=== PATIENT | female | born 1990 | race African-American/Black ===

== ENCOUNTER 2016-06-26 14:59 | Inpatient (IN) | payer OTHER ==
[~2016-06-26] VITALS: Ht 162.6 cm; Wt 106.0 kg
[~2016-06-26 14:59] MED LIST: PREN1TAB49 PO
[2016-06-26 15:23] LABS: URINE BLOOD (Dip) POC Negative (NEGATIVE)
[2016-06-26 15:27] VITALS: BP 134/61; PULSE 92; RESP 18; Ht 162.6 cm; Wt 106.0 kg
[2016-06-26 15:41] LABS: ADD UMIC YES; URINE BILIRUBIN (Dip) NEGATIVE (NEGATIVE); URINE BLOOD (Dip) NEGATIVE (NEGATIVE); URINE COLOR LT. YELLOW (YELLOW); URINE GLUCOSE (Dip) NEGATIVE (NEGATIVE); URINE KETONES (Dip) 3+ (NEGATIVE); URINE LEUKOCYTE ESTERASE (Dip) TRACE (NEGATIVE); URINE NITRITE (Dip) NEGATIVE (NEGATIVE); URINE TOTAL PROTEIN (Dip) TRACE (NEGATIVE); URINE UROBILINOGEN (Dip) 0.2 E.U./dL (0.1-1.0)
[2016-06-26 16:05] LABS: SQUAMOUS EPITHELIAL CELL,UR MODERATE; URINE RBCS NONE SEEN /HPF (0)
[2016-06-26 16:09] LABS: ADD SCAN DIFF NO
[2016-06-26 16:10] LABS: BASOPHILS % 0.1 % (0.0-2.0); EOSINOPHILS # 0.1 10^3/ul (0.0-0.5); EOSINOPHILS % 0.8 % (0.0-7.0); HEMATOCRIT 38.3 % (37.0-47.0); HEMOGLOBIN 13.4 g/dl (12.0-16.0); LYMPHOCYTES # 2.3 10^3/ul (0.8-2.9); LYMPHOCYTES % 27.1 % (15.0-51.0); MEAN CORPUSCULAR HEMOGLOBIN 33.7 pg (29.0-33.0); MEAN CORPUSCULAR VOLUME 96.2 fl (82.0-101.0); MEAN PLATELET VOLUME 10.3 fl (7.4-10.4); MONOCYTE # 0.9 10^3/ul (0.3-0.9); MONOCYTES % 10.3 % (0.0-11.0); NEUTROPHIL # 5.1 10^3/ul (1.6-7.5); NEUTROPHILS % 61.5 % (39.0-77.0); PLATELET COUNT 216 10^3/UL (140-415); RED BLOOD COUNT 3.98 10^6/ul (4.20-5.40); WHITE BLOOD COUNT 8.3 10^3/ul (4.8-10.8)
[2016-06-26] MEDS: LACTATED RINGER'S 1,000 ML IV* PRN ×2 (16:21→17:06)
[2016-06-26 16:37] LABS: INR 0.93; PROTIME 12.5 Sec (12.2-14.2)
[2016-06-26 16:37] LABS: ALBUMIN 3.4 g/dl (3.3-4.9)
[2016-06-26 16:38] LABS: POTASSIUM 3.4 mmol/L (3.5-5.1)
[2016-06-26 16:38] LABS: PARTIAL THROMBOPLASTIN TIME 31.1 Sec (25.0-35.0)
[2016-06-26 16:40] LABS: BILIRUBIN,INDIRECT 0.4 mg/dl (0-1.1); BILIRUBIN,TOTAL 0.4 mg/dl (0.2-1.3); CREATININE 0.45 mg/dl (0.44-1.00)
[2016-06-26 16:41] LABS: CALCIUM 9.9 mg/dl (8.4-10.2); TOTAL PROTEIN 6.8 g/dl (6.1-8.1)
--- NOTE | 2016-06-26 17:06 | RADRPT ---
PROCEDURE: Obstetrical ultrasound greater than 14 weeks CLINICAL INDICATION: labor TECHNIQUE: Real time sonographic imaging of the gravid uterus is performed transabdominally and mu ltiple static perez scale and Doppler images are submitted for review as are measurements. The image s are reviewed on the PACS. COMPARISON: No relevant exams are available FINDINGS: There is a single living intrauterine gestation in cephalic presentation. The heart beat is estimated at 122 bpm. The measurements are as follows: BPD:9.29 cm HC:33.42 cm AC:33.39 cm FL:7.57 cm Estimated gestational age is 38 weeks. The estimated date of delivery is 07/10/2016. The estimated weight is 3311 grams. Placenta is anterior and grade 3. There is no evidence of placenta previa or abruption. The amniotic fluid is qualitatively normal RPTAT:HJJR IMPRESSION: 1. Single viable intrauterine gestation in cephalic presentation estimated at 38 weeks with the bárbara mated date of delivery 07/10/2016. 2. Estimated weight 3311 g (7 pounds 5 ounces). 3. Anterior grade III placenta. Physician Moreno Date Time Electronically viewed and signed by Physician Moreno on 06/26/2016 17:06 /
--- NOTE | 2016-06-26 17:07 | RADRPT ---
PROCEDURE: US OB. CLINICAL INDICATION: labor TECHNIQUE: Pelvic ultrasound performed for biophysical profile. COMPARISON: 06/26/2016 FINDINGS: Single intrauterine gestation present with heart rate at 116 beats per minute. Presentation is ceph alic. Placenta is anterior, grade III. Biophysical profile score is 8/8 (breathing=2, movement=2, tone =2, fluid volume=2). Amniotic fluid volume is within normal limits, with SILVINO = 11.7 cm. RPTAT:HJJR IMPRESSION: Biophysical profile score 8/8. Amniotic fluid index measured at 11.7 cm. Physician Moreno Date Time Electronically viewed and signed by Physician Moreno on 06/26/2016 17:07 /
--- NOTE | 2016-06-26 19:07 | TRIAGE ---
OB Triage Datetime Report Generated by CPN: 06/26/2016 19:06 Datetime: 06/26/2016 18:15 Assessment Type: Admission Assessment Vaginal Bleeding: None Maternal Assessment Level of Consciousness: Fully Conscious DTR's/Clonus: DTRs 2+; No Clonus Headache: Denies Blurred Vision: No Respiratory Effort: Unlabored; Regular Rhythm; Equal Expansion Breath Sounds, Left: Clear and Equal Breath Sounds, Right: Clear and Equal Nausea/Vomiting: Denies RUQ Epigastric Pain: Denies Lower Extremities Edema: Bilateral Lower Extremities Degree: 2+ Upper Extremities Edema: Bilateral Upper Extremities Degree: 1+ Facial Edema: None Fall Risk Assessment History of Falling: (0) No Secondary Diagnosis: (0) No Ambulatory Aid: (0) Bedrest/Nurse Assist IV Therapy: (20) Yes Gait: (0) Normal/Bedrest/Immobile Mental Status: (0) Oriented to Own Ability Fall Score: 20 Fall Risk Score Definition: No Risk: No action required Comment: Labor Evaluation Frequency: 3-5 Duration (sec)2399: 60-120 Quality: Moderate Pattern: Normal: <= 5 Contractions in 10 Minutes Resting Tone [place]: Relaxed Heart Rate FHR Baseline Rate: 135 Variability: Moderate 6-25 bpm Accelerations: 15X15 Decelerations: None Category: Category I Pain Assessment Pain Scale: 8 Pain Presence: Intermittent Pain Type: Contraction Pain Location: Abdomen; Back Pain Assessment Comments: Vaginal Exam Dilatation (cms): 1.0 Effacement (%): 30 Station: -3 Membrane Status: Intact Datetime: 06/26/2016 16:17 Labor Evaluation Frequency: 3-5 Labor Evaluation Frequency: 3-5 Monitor Mode: External Duration (sec)2399: 60-120 Duration (sec)2399: 60-120 Quality: Moderate Pattern: Normal: <= 5 Contractions in 10 Minutes Resting Tone [place]: Relaxed Heart Rate FHR Baseline Rate: 135 Monitor Mode: External US Variability: Moderate 6-25 bpm Accelerations: 15X15 Decelerations: None Category: Category I Datetime: 06/26/2016 15:43 Vaginal Exam Dilatation (cms): 1.0 Datetime: 06/26/2016 15:41 Vaginal Exam Dilatation (cms): 1.0 Effacement (%): 30 Station: -3 Cervix, Consistency: Firm Cervix, Position: Posterior Presentation 'A': Cephalic Datetime: 06/26/2016 15:33 Maternal Assessment Level of Consciousness: Fully Conscious DTR's/Clonus: DTRs 2+; No Clonus Headache: Denies Blurred Vision: No Respiratory Effort: Unlabored; Regular Rhythm; Equal Expansion Breath Sounds, Left: Clear and Equal Breath Sounds, Right: Clear and Equal Nausea/Vomiting: Denies RUQ Epigastric Pain: Denies Lower Extremities Edema: Bilateral Lower Extremities Degree: 2+ Upper Extremities Edema: Right Upper Extremity Degree: 1+ Facial Edema: None Temperature Route: Axillary Fall Risk Assessment History of Falling: (0) No Secondary Diagnosis: (0) No Ambulatory Aid: (0) Bedrest/Nurse Assist IV Therapy: (0) No Gait: (0) Normal/Bedrest/Immobile Mental Status: (0) Oriented to Own Ability Fall Score: 0 Fall Risk Score Definition: No Risk: No action required Datetime: 06/26/2016 15:32 Time of Arrival: 06/26/2016 17:30 EGA: 38.2 Arrived By: Wheelchair Arrived From: Other Unit in Hospital Datetime: 06/26/2016 15:31 Time of Arrival: 06/26/2016 15:00 Arrived By: Wheelchair Arrived From: Emergency Dept Chief Complaint: uc's Movement: Present Contractions: Irregular Time Contractions Began: 06/25/2016 21:00 Rupture of Membranes: Denies Vaginal Bleeding: None Vaginal Discharge: Denies Recent Sexual Intercouse: Denies Abdominal Trauma: Not Applicable Patient Complaints: Contractions; Back Pain; Shortness of Breath Time Provider Notified: 06/26/2016 16:00 Provider Notified: dr. ford Initial Plan: nst, UA, bpp, iv hydration Datetime: 06/26/2016 15:29 Labor Evaluation Frequency: x2 Monitor Mode: External Duration (sec)2399: 20-50 Quality: Mild Pattern: Normal: <= 5 Contractions in 10 Minutes Resting Tone [place]: Relaxed Contraction Comments: appears pt is moving alot Heart Rate FHR Baseline Rate: 135 Monitor Mode: External US Variability: Moderate 6-25 bpm Accelerations: 15X15 Decelerations: None Category: Category I Comments: nst is reactive for gestational age Datetime: 06/26/2016 15:11 Monitor Mode: External US FHR Baseline Changes: No Baseline Change
[2016-06-26] MEDS ORDERED: OXYTOCIN 30 UNITS/LR 500 ML IV SCH (20:00)
[2016-06-26] MEDS ORDERED: OXYTOCIN 30 UNITS/LR 500 ML IV PRN ×2 (20:00→22:00)
[2016-06-26] MEDS ORDERED: METHYLERGONOVINE 0.2 MG INJ IM PRN ×2 (20:00→22:00)
[2016-06-26] MEDS ORDERED: CEFAZOLIN 2 GM/50 ML (PMX) 50 ML IV SCH (20:00)
[2016-06-26] MEDS ORDERED: CARBOPROST 250 MCG INJ IM PRN ×2 (20:00→22:00)
[2016-06-26] MEDS ORDERED: MISOPROSTOL 200 MCG TAB PR PRN ×2 (20:00→22:00)
[2016-06-26] MEDS ORDERED: morphine SULFATE/PF (10 MG/10 ML) INJ ONE (21:03)
[2016-06-26] MEDS ORDERED: FENTAnyl 50 MCG/ML VIAL ONE (21:03)
[2016-06-26] MEDS ORDERED: PHENYLephrine (100 MCG/ML) 5ML SYG ONE (21:03)
--- NOTE | 2016-06-26 21:03 | PREOPHP ---
DATE OF ADMISSION: 06/26/2016 HISTORY OF PRESENT ILLNESS: Ms. Renetta Hernández is a 25-year-old, 3, para 1, EDC 07/10/2016, intrauterine at 38 weeks gestational age, presented to triage complaining of regular contr actions with a pain scale of 8/10. She denies any vaginal bleeding or discharge. The patient has a significant history 1 previous . Desires elective repeat delivery. PAST MEDICAL HISTORY: None. MEDICATIONS: vitamins. PAST SURGICAL HISTORY: Times 1 in 2011 and umbilical hernia repair in 1999. OBSTETRICAL HISTORY: Times 1 termination of , x1 elective section. GYNECOLOGIC HISTORY: 12, regular 3 to 4 days. Denies any sexually transmitted diseases. Sexually active with 1 partner. SOCIAL HISTORY: Denies any smoking, drugs, or alcohol. FAMILY HISTORY: None. PHYSICAL EXAMINATION: HEENT: Within normal. LUNGS: CTA bilateral. CARDIOVASCULAR: S1, S2. Regular rhythm. ABDOMEN: Gravid, nontender. EXTREMITIES: Negative edema. No calf tenderness. VAGINAL: 1 to 2 cm, 50% effaced, -2 station. heart tracing category 1. [place]: Regular contr actions. ASSESSMENT: A 25-year-old 3, para 1, intrauterine at 38 weeks gestational age, pr evious section x1, desires elective repeat delivery, declined vaginal after . PLAN: Consent for repeat delivery. Risks, benefits, and alternatives explained. All ques tions were answered. Dictated By: KRISTY HARRIS/MALIK Conf#: [id number] DID#: [id number]
[2016-06-26] MEDS ORDERED: METOCLOPRAMIDE 10 MG INJ ONE (21:04)
[2016-06-26] MEDS ORDERED: OXYTOCIN 10 UNIT INJ ONE (21:04)
[2016-06-26 21:46] LABS: BARBITURATES NEGATIVE (NEGATIVE)
[2016-06-26 21:47] LABS: BENZODIAZEPINES NEGATIVE (NEGATIVE); CANNABINOIDS NEGATIVE (NEGATIVE); COCAINE NEGATIVE (NEGATIVE); OPIATES NEGATIVE (NEGATIVE)
[2016-06-26] MEDS ORDERED: MIDAZOLAM 1 MG/ML 2 ML INJ IV PRN (22:00)
[2016-06-26] MEDS ORDERED: morphine 2 MG INJ IV PRN ×2 (22:00)
[2016-06-26] MEDS ORDERED: HYDROmorphONE (0.2 MG/ML) 10ML SYG IV PRN ×3 (22:00)
[2016-06-26] MEDS ORDERED: ONDANSETRON 4 MG INJ IV PRN ×2 (22:00)
[2016-06-26] MEDS ORDERED: hydrALAzine 20 MG INJ IV PRN (22:00)
[2016-06-26] MEDS ORDERED: DIPHENHYDRAMINE 50 MG INJ IV PRN ×2 (22:00)
[2016-06-26] MEDS ORDERED: ZOLPIDEM 5 MG TAB PO PRN (22:00)
[2016-06-26] MEDS ORDERED: NALOXONE (0.4 MG/ML) INJ IV PRN (22:00)
[2016-06-26] MEDS ORDERED: EPHEDrine SULFATE 50 MG/5 ML SYG IV PRN (22:00)
[2016-06-26] MEDS ORDERED: OXYCODONE/ACETAMINOPHEN (5/325) TAB PO PRN ×2 (22:00)
[2016-06-26] MEDS ORDERED: TRIMETHOBENZAMIDE 100 MG/ML VIAL IM PRN (22:00)
[2016-06-26] MEDS ORDERED: MEPERIDINE 25 MG INJ IV PRN (22:00)
[2016-06-26] MEDS ORDERED: FENTAnyl 50 MCG/ML VIAL IV PRN ×3 (22:00)
[2016-06-26] MEDS ORDERED: LABETALOL HCL 20MG INJ IV PRN (22:00)
[2016-06-26] MEDS: LACTATED RINGER'S 1,000 ML IV SCH (22:22)
--- NOTE | 2016-06-26 22:46 | OPR ---
DATE OF OPERATION: 06/26/2016 PRIMARY DIAGNOSIS: A 25-year-old 3, para 1, intrauterine at 38 weeks' gestational age, in labor, previous x1, desires elective repeat delivery. Declined vaginal after . POSTOPERATIVE DIAGNOSIS: A 25-year-old 3, para 1, intrauterine at 38 weeks' gesta tional age, in labor, previous x1, desires elective repeat delivery. Declined va ginal after . OPERATION PERFORMED: Repeat low transverse delivery via Pfannenstiel incision. SURGEON: Dr. Driver. NETWORK CONTROL TECHNICIAN: Dr. Cespedes. ANESTHESIA: Spinal. COMPLICATIONS: None. ESTIMATED BLOOD LOSS: 500 mL. FINDINGS: A viable female, 9 and 9 respectively at 1 and 5 minutes, in cephalic presentation. Weight 6 pounds 11 ounces. Normal uterus, tubes, and ovaries. DESCRIPTION OF PROCEDURE: After explaining the risks, benefits, and alternatives, the patient conse nted and signed chart. The patient was taken to the operating room, where spinal anesthesia was fou nd to be adequate. She was then prepared and draped in normal sterile fashion in dorsal supine posi tion with a leftward tilt. A Pfannenstiel skin incision was then made with a scalpel and carried to the underlying layer of fascia. The fascia was incised in the midline and the incision was extende d laterally with Tolliver scissors. The superior aspect of the fascial incision was grasped with curved clamps, elevated, and the underlying rectus muscles dissected off bluntly. Attention was then turn ed to the inferior aspect of the incision, which in similar fashion was grasped, tented up with curv ed clamps, and the rectus muscles dissected off bluntly. The rectus muscle was in midline , peritoneum identified, tented up, and entered sharply with Metzenbaum scissors. The peritoneal in cision was extended superiorly with good visualization of bladder. The bladder blade was then inser priya and the vesicouterine peritoneum identified, grasped with pickups, and entered sharply with Jagruti enbaum scissors. This incision was extended laterally and the bladder flap created digitally. The bladder blade was then reinserted and the lower segment incised in transverse fashion with a scalpel . The uterine incision was extended laterally. The bladder blade was removed and the 's head delivered atraumatically. The nose and mouth were suctioned and cord clamped and cut. The infant was handed off to awaiting change control coordinator. The placenta was then removed. The uterus was exteriorize d and cleared of all clots and debris. The uterine incision was repaired with 1-0 chromic in a runn ing locked fashion. A second layer of same suture was used for imbrication, obtaining excellent hem ostasis. The uterus was returned to the abdomen. The gutters were cleared of all clots. The perit oneum and rectus abdominis muscles were reapproximated with 3-0 Vicryl in interrupted fashion. The fascia was reapproximated with #0 Vicryl in running fashion. The subcutaneous tissue was reapproxim ated with 2-0 plain gut in a running fashion. The skin was closed with quinton. The patient tolera priya procedure well. Sponge, lap and needle counts correct x2. The patient was taken to recovery ro in stable condition. Dictated By: KRISTY HARRIS/MALIK Conf#: [id number] DID#: [id number]
[2016-06-26] MEDS ORDERED: KETOROLAC 30 MG INJ IV PRN (23:00)
[2016-06-27] MEDS ORDERED: IBUPROFEN 600 MG TAB PO SCH
[2016-06-27 00:40] VITALS: BP 123/70; PULSE 93; RESP 18
[2016-06-27 03:45] VITALS: BP 114/65; PULSE 90; RESP 18
[2016-06-27] MEDS: LACTATED RINGER'S 1,000 ML IV SCH ×3 (05:33→21:50)
[2016-06-27 08:00] VITALS: BP 109/65; PULSE 85; RESP 18
[2016-06-27] MEDS: SENNA/DOCUSATE NA (8.6MG/50MG) TAB PO SCH ×2 (08:07→21:14)
[2016-06-27] MEDS: KETOROLAC 30 MG INJ IV PRN ×2 (08:07→16:23)
[2016-06-27 08:20] LABS: ADD SCAN DIFF NO
[2016-06-27 08:28] LABS: BASOPHILS % 0.1 % (0.0-2.0); EOSINOPHILS % 0.4 % (0.0-7.0); HEMATOCRIT 38.5 % (37.0-47.0); HEMOGLOBIN 13.1 g/dl (12.0-16.0); LYMPHOCYTES # 2.4 10^3/ul (0.8-2.9); LYMPHOCYTES % 21.4 % (15.0-51.0); MEAN CORPUSCULAR HEMOGLOBIN 33.1 pg (29.0-33.0); MEAN CORPUSCULAR VOLUME 97.2 fl (82.0-101.0); MEAN PLATELET VOLUME 10.7 fl (7.4-10.4); MONOCYTE # 1.4 10^3/ul (0.3-0.9); MONOCYTES % 12.4 % (0.0-11.0); NEUTROPHIL # 7.4 10^3/ul (1.6-7.5); NEUTROPHILS % 65.3 % (39.0-77.0); PLATELET COUNT 210 10^3/UL (140-415); RED BLOOD COUNT 3.96 10^6/ul (4.20-5.40); RED CELL DISTRIBUTION WIDTH 12.8 % (11.5-14.5); WHITE BLOOD COUNT 11.3 10^3/ul (4.8-10.8)
[2016-06-27 12:00] VITALS: BP 103/72; PULSE 83; RESP 18
[2016-06-27 16:20] VITALS: BP 132/62; PULSE 86; RESP 18
[2016-06-27 20:00] VITALS: BP 107/73; PULSE 79; RESP 18
--- NOTE | 2016-06-27 20:24 | QN ---
Documentation Comment pod 1 patient seen and evaluated no complaints vs stable afebrile abd soft nt no distention dressing clean/dry extremity no edema calf tenderness a/ s/p r cd pod 1 stable p/ continue present managment KRISTY SHERWOOD MD June 27, 2016 20:24
[2016-06-27] MEDS ORDERED: ZOLPIDEM 5 MG TAB PO PRN (20:30)
[2016-06-27] MEDS ORDERED: OXYCODONE/ACETAMINOPHEN (5/325) TAB PO PRN (21:07)
[2016-06-27] MEDS: OXYCODONE/ACETAMINOPHEN (5/325) TAB PO PRN (21:39)
[2016-06-28] MEDS: IBUPROFEN 600 MG TAB PO SCH ×5 (00:32→23:48)
[2016-06-28 04:00] VITALS: BP 110/63; PULSE 75; RESP 18
[2016-06-28] MEDS: LACTATED RINGER'S 1,000 ML IV SCH ×2 (05:50→13:50)
[2016-06-28] MEDS: OXYCODONE/ACETAMINOPHEN (5/325) TAB PO PRN ×3 (06:57→20:51)
[2016-06-28 08:00] VITALS: BP 109/52; PULSE 70; RESP 18
[2016-06-28] MEDS: SENNA/DOCUSATE NA (8.6MG/50MG) TAB PO SCH ×2 (08:16→20:51)
--- NOTE | 2016-06-28 14:45 | QN ---
Documentation Comment pod 2 patient seen and evaluated no complaints vs stable afebrile abd soft nt no distention dressing clean/dry extremity no edema calf tenderness a/ s/p r cd pod 2 stable p/ continue present managment KRISTY SHERWOOD MD June 28, 2016 14:45
[2016-06-28 16:00] VITALS: BP 114/76; PULSE 75; RESP 18
[2016-06-28 20:56] VITALS: BP 122/73; PULSE 69; RESP 18
[2016-06-29] VITALS: BP 118/64; PULSE 64; RESP 19
[2016-06-29 03:30] VITALS: BP 105/56; PULSE 76; RESP 18
[2016-06-29] MEDS: IBUPROFEN 600 MG TAB PO SCH ×3 (05:36→17:58)
[2016-06-29 08:00] VITALS: BP 122/60; PULSE 71; RESP 19
[2016-06-29] MEDS ORDERED: DIPHTH/TET/ACEL PERTUSS (ADULT) 0.5 ML VIAL IM* ONE (09:00)
[2016-06-29] MEDS: SENNA/DOCUSATE NA (8.6MG/50MG) TAB PO SCH ×2 (09:09→20:46)
--- NOTE | 2016-06-29 11:48 | PN ---
Date/Time of Note Date/Time of Note DATE: 06/29/16 TIME: 11:46 OB Subjective Subjective Subjective Postop day #3 S/P repeat Patient has no complaints OB Objective Objective Objective Patient is afebrile and stable HEENT: WNL Heart: Rhythm Normal Lungs: Clear, Equal Abdomen: WNL (Incision clean dry and intact) Extremities: Normal Reflexes: Normal OB Assessment/Plan Other Assessment: Postop day #3 status post repeat Patient is afebrile and stable Other plan: Plan to D/C home tomorrow Follow-up with in 2 and 6 weeks SANDRA MERCADO MD June 29, 2016 11:48
[2016-06-29 15:43] VITALS: BP 107/61; PULSE 72
[2016-06-29] MEDS: OXYCODONE/ACETAMINOPHEN (5/325) TAB PO PRN ×2 (15:43→20:46)
[2016-06-29 19:45] VITALS: BP_SYST 111; BP_SYST 120; BP_DIAS 54; BP_DIAS 58; PULSE 67; PULSE 76; RESP 19; RESP 20
[2016-06-30] MEDS: IBUPROFEN 600 MG TAB PO SCH ×3 (01:03→11:33)
[2016-06-30 04:15] VITALS: BP 99/56; PULSE 65; RESP 19
[2016-06-30 07:27] LABS: ADD SCAN DIFF NO
[2016-06-30 07:42] LABS: BASOPHILS % 0.2 % (0.0-2.0); EOSINOPHILS # 0.3 10^3/ul (0.0-0.5); EOSINOPHILS % 3.8 % (0.0-7.0); HEMATOCRIT 36.4 % (37.0-47.0); HEMOGLOBIN 12.3 g/dl (12.0-16.0); LYMPHOCYTES % 33.4 % (15.0-51.0); MEAN CORPUSCULAR HEMOGLOBIN 33.2 pg (29.0-33.0); MEAN CORPUSCULAR HGB CONC 33.8 g/dl (32.0-37.0); MEAN CORPUSCULAR VOLUME 98.4 fl (82.0-101.0); MEAN PLATELET VOLUME 10.5 fl (7.4-10.4); MONOCYTE # 0.9 10^3/ul (0.3-0.9); NEUTROPHIL # 4.7 10^3/ul (1.6-7.5); NEUTROPHILS % 52.4 % (39.0-77.0); PLATELET COUNT 265 10^3/UL (140-415); WHITE BLOOD COUNT 8.9 10^3/ul (4.8-10.8)
[2016-06-30 08:00] VITALS: BP 127/75; PULSE 72; RESP 17
[2016-06-30] MEDS: SENNA/DOCUSATE NA (8.6MG/50MG) TAB PO SCH (09:14)
--- NOTE | 2016-06-30 09:48 | QN ---
Documentation Comment pod 3 +BM +voids No vaginal bleeding no complaints vs stable afebrile abd soft nt no distention dressing clean/dry extremity no edema calf tenderness -->discharge -->please remove the quinton before discharge ALIA GARCIA M.D. June 30, 2016 09:48
--- NOTE | 2016-06-30 09:50 | DS ---
Date/Time of Note Date/Time of Note DATE: 06/30/16 TIME: 09:50 Discharge Summary Admission/Discharge Info Admit Date/Time June 26, 2016 at 17:30 Discharge Date/Time Final Diagnosis repeat c/section Patient Condition: Stable Procedures Repeat c/section Hospital Course uneventful Home Meds Reported Medications Vits W-Ca,Fe,Fa(<1MG) () 1 Tab Tablet, 1 TAB PO 05/23/11 Pending Labs Laboratory Tests Test 06/30/16 06:02 White Blood Count 8.910^3/ul (4.8-10.8) Red Blood Count 3.7010^6/ul (4.20-5.40) Hemoglobin 12.3g/dl (12.0-16.0) Hematocrit 36.4% (37.0-47.0) Mean Corpuscular Volume 98.4fl (82.0-101.0) Mean Corpuscular Hemoglobin 33.2pg (29.0-33.0) Mean Corpuscular Hemoglobin Concent 33.8g/dl (32.0-37.0) Red Cell Distribution Width 13.0% (11.5-14.5) Platelet Count 21714^3/UL (140-415) Mean Platelet Volume 10.5fl (7.4-10.4) Neutrophils % 52.4% (39.0-77.0) Lymphocytes % 33.4% (15.0-51.0) Monocytes % 10.0% (0.0-11.0) Eosinophils % 3.8% (0.0-7.0) Basophils % 0.2% (0.0-2.0) Nucleated Red Blood Cells % 0.0/100WBC (0.0-0.0) Neutrophils # 4.710^3/ul (1.6-7.5) Lymphocytes # 3.010^3/ul (0.8-2.9) Monocytes # 0.910^3/ul (0.3-0.9) Eosinophils # 0.310^3/ul (0.0-0.5) Basophils # 0.010^3/ul (0.0-0.1) Nucleated Red Blood Cells # 0.010^3/ul (0.0-0.0) ALIA GARCIA M.D. June 30, 2016 09:50
[2016-06-30 15:50] VITALS: BP 112/68; PULSE 70; RESP 20
== END 2016-06-30 17:35 | disposition home or self-care (01) | DRG 766 ==
LOC: OBT 14:59 → L-D 15:01 → OBT 17:30 → L-D 20:57 → PP1 06-27 00:23
PROVIDERS: ADMIT Obstetrics & Gynecology; ATTEND Obstetrics & Gynecology
PROC: 10D00Z1 Extraction of Products of Conception, Low, Open Approach (ICD-10-PCS; principal; 2016-06-26 21:00)
DX: O34.211 Maternal care for low transverse scar from previous cesarean delivery (principal); Z37.0 Single live birth; Z3A.38 38 weeks gestation of pregnancy
CPT/HCPCS: 36415; 76815; 76818; 80053; 80307; 81001; 81003; 84560; 85025; 85384; 85610; 85730; 86850; 86900; 86901; 87340; 90715; 94760; 96360; 96372; 99464; G0463; J0690; J1885; J2210; J2270; J2274; J2370; J2590; J2765; J3010; J7120